=== PATIENT | female | born 1950 | race African-American/Black ===

== ENCOUNTER 2016-08-10 16:17 | Emergency (ER) | payer MEDICAID, MEDICARE ==
[~2016-08-10] VITALS: Ht 170.2 cm; Wt 81.6 kg
[~2016-08-10 16:17] MED LIST: ALBUTEROL SULF8.5 GM INH; AZITHROMYCIN250 MG BC; AZITHROMYCIN250 MG ORAL; NKM; PHENERGAN6.25 MG/5 ORAL; PREDNISONE10 MG ORAL; PROMETHAZINE-D118 ML ORAL; UNOBMED
[2016-08-10] MEDS ORDERED: PREDNISONE20 MG ORAL (16:55)
[2016-08-10] MEDS ORDERED: PROMETHAZINE-D118 ML ORAL (16:55)
[2016-08-10] MEDS ORDERED: ZITHROMAX250 MG ORAL (16:55)
[2016-08-10 16:56] VITALS: BP 130/77
--- NOTE | 2016-08-10 19:34 | Emergency Room Report ---
History of Present Illness General Chief Complaint: Upper Respiratory Illness Source: Patient (MICH PRITCHETT) Present Illness HPI The patient is a 66-year-old female with a stated history of chronic bronchitis presenting for one week of productive cough, fever, and chills. The patient denies any sick contacts recent travel. Pain is described as an 8/10 dull ache to the mid chest and back which occurs only with coughing. No radiating pain. The patient has not tried any medications. The patient denies any other symptoms including N, V, SOB, diaphoresis, dizziness, blurred vision, numbness/tingling (MICH PRITCHETT P.A.) Allergies: Coded Allergies: CODEINE (Verified Allergy, Unknown, 06/28/15) Patient History Past Medical History: see triage record, COPD Pertinent Family History: none Reviewed Nursing Documentation: PMH: Agreed, PSxH: Agreed (MICH PRITCHETT.AGiuliana) Nursing Documentation-PMH Hx Cardiac Problems: No Hx Hypertension: Yes Hx Cancer: No Hx Gastrointestinal Problems: No Hx Neurological Problems: No (MICH PRITCHETT P.AGiuliana) Review of Systems All Other Systems: negative except mentioned in HPI (MICH PRITCHETT P.AGiuliana) Physical Exam Vital Signs Date Time Temp Pulse Resp B/P Pulse Ox O2 Delivery O2 Flow Rate FiO2 08/10/16 16:31 98.8 98 17 130/77 97 Room Air Sp02 EP Interpretation: reviewed, normal General Appearance: no apparent distress, alert, GCS 15, non-toxic Head: normocephalic, atraumatic Eyes: bilateral eye PERRL, bilateral eye normal inspection ENT: hearing grossly normal, normal pharynx, no angioedema, normal voice, TMs + canals normal, uvula midline Neck: full range of motion, supple/symm/no masses Respiratory: normal inspection, chest non-tender, no accessory muscle use, wheezing - diffuse Cardiovascular #1: regular rate, rhythm, no edema Musculoskeletal: back normal, gait/station normal, normal range of motion, non- tender Neurologic: alert, oriented x3, responsive, motor strength/tone normal, sensory intact, normal gait, speech normal Psychiatric: judgement/insight normal, memory normal, mood/affect normal, no suicidal/homicidal ideation Skin: normal color, no rash, warm/dry, well hydrated Lymphatic: no adenopathy (MICH PRITCHETT) Medical Decision Making PA Attestation Dr. Schmitt is my supervising physician. Patient management was discussed with my supervising physician (MICH PRITCHETT) Medicare Attestation The history of Mariah Ryan has been reviewed and management options for her have been examined and discussed by Masoud Schmitt. I have personally examined and interviewed the patient. (MASOUD SCHMITT M.D.) Diagnostic Impression: Primary Impression: Bronchitis ER Course The patient is a 66-year-old female with a stated history of chronic bronchitis presenting for one week of productive cough, fever, and chills Differential diagnosis include but not limited to pharyngitis, sinusitis, AOM, bronchitis, PNA PE: vitals WNL. Afebrile. NAD HEENT exam is unremarkable. No tonsillar edema, erythema, or exudate. No cervical lymphadenopathy Lungs: diffuse wheezing. No accessory muscle use. No resp distress The patient is given a prescription for azithromycin, cough medication, prednisone. Patient will continue to take albuterol at home. ER precautions are given and the patient needs to followup with PMD (MICH PRITCHETT) Last Vital Signs Date Time Temp Pulse Resp B/P Pulse Ox O2 Delivery O2 Flow Rate FiO2 08/10/16 16:56 17 130/77 97 Room Air 08/10/16 16:56 98 08/10/16 16:56 98.8 Status: improved (MICH PRITCHETT) Disposition: HOME, SELF-CARE Condition: Improved Scripts D-Methorphan Hb/Prometh Hcl* (PROMETHAZINE-DM SYRUP*) 118 Ml Syrup 5 ML ORAL Q6H Y for For Cough, #118 ML 0 Refills Prov: TERZIAN,MICH P.A. 08/10/16 Prednisone* (PREDNISONE*) 20 Mg Tablet 20 MG ORAL DAILY, #5 TAB 0 Refills Prov: TERZIAN,MICH P.A. 08/10/16 Azithromycin* (ZITHROMAX*) 250 Mg Tablet 250 MG ORAL DAILY, #6 TAB 0 Refills Take two tables once daily for 1 day, then one tablet once daily for 4 days. Prov: TERZIAN,MICH P.A. 08/10/16 Referrals: [facility],REFERR[facility] (PCP) Patient Instructions: Acute Bronchitis Additional Instructions: I discussed my findings with the patient. All questions and concerns have been answered. Treatment and medication compliance have been addressed. I advised the patient that they need to follow up with PMD in 3-5 days. Return to ED if pain remains or worsens, cough worsens or remains, you notice blood in your sputum, you notice wheezing, you experience a fever, or if needed for any reason. Patient verbalized understanding of discharge instructions. MICH PRITCHETT Aug 10, 2016 19:34 MASOUD SCHMITT M.D. Aug 13, 2016 02:40
== END 2016-08-10 18:00 | disposition home or self-care (01) ==
LOC: EMR 17:41
DX: J42 Unspecified chronic bronchitis (principal); I10 Essential (primary) hypertension; Z88.6 Allergy status to analgesic agent
CPT/HCPCS: 99284

== ENCOUNTER 2018-04-11 11:46 | Emergency (ER) | payer MEDICARE, OTHER ==
[~2018-04-11] VITALS: Ht 170.2 cm; Wt 104.3 kg
[~2018-04-11 11:46] MED LIST changes: +PREDNISONE20 MG ORAL; +ZITHROMAX250 MG ORAL
[2018-04-11] MEDS ORDERED: ASPIR 8181 MG ORAL (11:57)
[2018-04-11 12:24] VITALS: BP 143/86
--- NOTE | 2018-04-11 12:28 | Emergency Room Report ---
History of Present Illness General Chief Complaint: Upper Respiratory Illness Source: Patient Present Illness HPI 68-year-old female presents to the emergency department complaining of acute exacerbation of her Asthma times one day. Patient denies fevers, chills, chest pain, palpitations, swelling of the lower extremities. Pt also reports 10/[address], describes burning sensation exacerbated with swallowing. Denies swollen tonsils. Patient reports that she needs refill of her albuterol inhaler as well. Patient reports persistent coughing with attempts to take a deep breath. Has hx of HTN and bronchitis. pt. denies dizziness or PEREA. no aggravating or relieving factors, and no other complaints at this time. Allergies: Coded Allergies: CODEINE (Verified Allergy, Unknown, 06/28/15) Patient History Past Medical History: see triage record, COPD Past Surgical History: none Pertinent Family History: none Now: No Immunizations: UTD Reviewed Nursing Documentation: PMH: Agreed; PSxH: Agreed Nursing Documentation-PMH Hx Cardiac Problems: No Hx Hypertension: Yes Hx Pacemaker: No Hx Asthma: No Hx COPD: No Hx Diabetes: No - Borderline DM Hx Cancer: No Hx Gastrointestinal Problems: No Hx Dialysis: No History Of Psychiatric Problem: No Hx Neurological Problems: No Hx Cerebrovascular Accident: No Hx Seizures: No Review of Systems All Other Systems: negative except mentioned in HPI Physical Exam Vital Signs Date Time Temp Pulse Resp B/P (MAP) Pulse Ox O2 Delivery O2 Flow Rate FiO2 04/11/18 11:53 98.2 91 14 143/86 99 Room Air Sp02 EP Interpretation: reviewed, normal General Appearance: no apparent distress, alert, GCS 15, non-toxic Head: normocephalic, atraumatic Eyes: bilateral eye normal inspection, bilateral eye PERRL ENT: hearing grossly normal, normal voice, uvula midline, moist mucus membranes , nasal congestion, pharyngeal erythema, other - no exudates. Neck: full range of motion Respiratory: chest non-tender, lungs clear, normal breath sounds, no rhonchi, no respiratory distress, no accessory muscle use, speaking full sentences, wheezing - mild wheezing. no pedal edema, no rales or ronchi, throat is benign in appearance, no evidence of bacterial infection at this time. normal 02 saturation, NAD, non-toxic in appearance. Pt. does not appear SOB or having increased effort to breath. Cardiovascular #1: regular rate, rhythm, no edema, normal capillary refill Musculoskeletal: back normal, gait/station normal, normal range of motion, non- tender Neurologic: alert, oriented x3, responsive, motor strength/tone normal, sensory intact, normal gait, speech normal, grossly normal Psychiatric: judgement/insight normal Skin: normal color, no rash, warm/dry, well hydrated Lymphatic: no adenopathy Medical Decision Making PA Attestation Dr. Nelson is my supervising Physician whom patient management has been discussed with. Diagnostic Impression: Primary Impression: Asthmatic bronchitis Qualified Codes: J45.41 - Moderate persistent asthma with (acute) exacerbation Additional Impression: Persistent cough ER Course 68-year-old female presents to the emergency department complaining of acute exacerbation of her Asthma times one day. Patient denies fevers, chills, chest pain, palpitations, swelling of the lower extremities. Pt also reports 10/[address], describes burning sensation exacerbated with swallowing. Denies swollen tonsils. Patient reports that she needs refill of her albuterol inhaler as well. Patient reports persistent coughing with attempts to take a deep breath. Has hx of HTN and bronchitis. pt. denies dizziness or PEREA. no aggravating or relieving factors, and no other complaints at this time. Ddx considered but are not limited to URI, pneumonia, PE, strep pharyngitis, meningitis, Bronchitis, HI, CHF just to name a few. Vital signs: Pt.is afebrile VS are WNL H&PE are most consistent with bronchitis- mild wheezing. no pedal edema, no rales or ronchi, throat is benign in appearance, no evidence of bacterial infection at this time. normal 02 saturation, NAD, non-toxic in appearance. Pt. does not appear SOB or having increased effort to breath. ORDERS: none required at this time, the diagnosis is clinical ED INTERVENTIONS: None required at this time. DISCHARGE: At this time pt. is stable for d/c to home. Will provide printed patient care instructions, and any necessary prescriptions. Care plan and follow up instructions have been discussed with the patient prior to discharge. Last Vital Signs Date Time Temp Pulse Resp B/P (MAP) Pulse Ox O2 Delivery O2 Flow Rate FiO2 04/11/18 12:24 98.2 91 14 143/86 99 Room Air Disposition: HOME, SELF-CARE Condition: Stable Scripts Albuterol Sulfate* (ALBUTEROL SULFATE MDI*) 8.5 Gm Hfa.aer.ad 2 PUFF INH Q4H, #1 INH 0 Refills Prov: Steph Gomez 04/11/18 D-Methorphan Hb/Prometh Hcl* (PROMETHAZINE-DM SYRUP*) 118 Ml Syrup 5 ML ORAL Q6H PRN for For Cough, #120 ML 0 Refills Prov: Steph Gomez 04/11/18 Patient Instructions: Acute Bronchitis, [id number] Additional Instructions: Take medications as directed. Follow up with a Primary Care Provider in 3-5 days, even if your symptoms have resolved. --Please review list of primary care clinics, if you do not already have a primary care provider Return sooner to ED if new symptoms occur, or current symptoms become worse. Do not drink alcohol, drive, or operate heavy machinery while taking Cough Syrup as this may cause drowsiness. - Please note that this Emergency Department Report was dictated using [employer] operator technology software, occasionally this can lead to erroneous entry secondary to interpretation by the dictation equipment. Steph Gomez Apr 11, 2018 12:28
[2018-04-11] MEDS ORDERED: PROMETHAZINE-D118 ML ORAL (12:47)
[2018-04-11] MEDS ORDERED: ALBUTEROL SULF8.5 GM INH (12:47)
[2018-04-11 13:07] VITALS: BP 143/86
== END 2018-04-11 13:08 | disposition home or self-care (01) ==
LOC: EMR 12:50
DX: J45.41 Moderate persistent asthma with (acute) exacerbation (principal); J44.1 Chronic obstructive pulmonary disease with (acute) exacerbation; R05 Cough; I10 Essential (primary) hypertension; Z88.5 Allergy status to narcotic agent; R73.03 Prediabetes
CPT/HCPCS: 99282